=== PATIENT | female | born 1940 | race Caucasian/White ===

== ENCOUNTER 2018-09-20 06:41 | Inpatient (IN) ==
[~2018-09-20 06:41] MED LIST: ceFAZolin 1,000 MG in SYRINGE 1 EACH IV ONE
[2018-09-20] MEDS ORDERED: LACTATED RINGERS 1,000 ML IV SCH (08:30)
[2018-09-20] MEDS ORDERED: ceFAZolin 1,000 MG VIAL ONE (09:05)
[2018-09-20] MEDS ORDERED: DIAZEPAM 5 MG TABLET PO STA (09:07)
[2018-09-20] MEDS ORDERED: ALBUTEROL/IPRATROPIUM 3 ML NEB RESP TX STA (09:08)
[2018-09-20] MEDS ORDERED: DIAZEPAM 5 MG TABLET ONE (09:10)
[2018-09-20] MEDS ORDERED: BUPIVACAINE 0.5% 50 ML VIAL ONE (09:12)
[2018-09-20] MEDS ORDERED: LIDOCAINE 1%/EPI INJ 20 ML VIAL ONE (09:12)
[2018-09-20] MEDS ORDERED: TISSUE ADHESIVE 1 EACH APPLICATOR TOP ONE (09:12)
[2018-09-20] MEDS ORDERED: MORPHINE 4 MG/1 ML VIAL IV PRN ×2 (11:15)
[2018-09-20] MEDS ORDERED: ONDANSETRON 4 MG/2 ML VIAL IV PRN ×2 (11:15→11:47)
[2018-09-20] MEDS ORDERED: ALBUTEROL 0.63 MG/3 ML NEB RESP TX PRN (11:18)
[2018-09-20] MEDS ORDERED: Tapentadol Hcl [Nucynta] 50 MG PO PRN (11:18)
[2018-09-20] MEDS ORDERED: CYCLOBENZAPRINE 10 MG TABLET PO PRN (11:18)
[2018-09-20] MEDS ORDERED: MEPERIDINE 25 MG/1 ML VIAL IV PRN (11:20)
[2018-09-20] MEDS ORDERED: GLUCAGON 1 MG VIAL IM PRN (11:20)
[2018-09-20] MEDS ORDERED: DEXTROSE 50% 25 GM/50 ML VIAL IV PRN (11:20)
[2018-09-20] MEDS ORDERED: ONDANSETRON 4 MG/2 ML VIAL ONE ×2 (11:38→11:43)
[2018-09-20] MEDS ORDERED: HYDROmorphone 2 MG/1 ML VIAL ONE (11:38)
[2018-09-20] MEDS ORDERED: SEVOFLURANE 1 UNIT/15 MINUTE INH ONE (11:42)
[2018-09-20] MEDS ORDERED: PROPOFOL 200 MG/20 ML VIAL IV ONE (11:42)
[2018-09-20] MEDS ORDERED: NEOSTIGMINE 10 MG/10 ML VIAL ONE (11:43)
[2018-09-20] MEDS ORDERED: GLYCOPYRROLATE 0.4 MG/2 ML VIAL ONE (11:43)
[2018-09-20] MEDS ORDERED: fentaNYL 100 MCG/2 ML VIAL ONE (11:43)
[2018-09-20] MEDS ORDERED: MIDAZOLAM 2 MG/2 ML VIAL ONE (11:43)
[2018-09-20] MEDS ORDERED: KETOROLAC 30 MG/1 ML VIAL ONE (11:43)
[2018-09-20] MEDS ORDERED: ACETAMINOPHEN 1,000 MG/100 ML VIAL IV ONE (11:43)
[2018-09-20] MEDS ORDERED: ROCURONIUM 100 MG/10 ML VIAL IV ONE (11:43)
[2018-09-20] MEDS ORDERED: DEXAMETHASONE 4 MG/1 ML VIAL ONE (11:43)
[2018-09-20] MEDS: HYDROmorphone 2 MG/1 ML VIAL IV PRN ×4 (11:54→12:21)
[2018-09-20] MEDS: MULTIVITAMIN (CENTRUM) TABLET PO SCH (13:48)
[2018-09-20] MEDS: INSULIN LISPRO 100 UNIT/ML SUBCUT SCH ×2 (14:23→18:57)
[2018-09-20] MEDS: GABAPENTIN 300 MG CAPSULE PO SCH ×3 (14:23→21:29)
[2018-09-20] MEDS: ceFAZolin 2,000 MG in PREMIX 1 EACH IV SCH (18:58)
[2018-09-20] MEDS: MEPERIDINE 50 MG TABLET PO PRN (19:11)
[2018-09-20] MEDS: CALCIUM (CARBONATE)/VITAMIN D 600 MG-400 UNIT TABLET PO SCH (21:29)
[2018-09-20] MEDS: DONEPEZIL 10 MG TABLET PO SCH (21:29)
[2018-09-20] MEDS: CARBIDOPA/LEVODOPA 25-100 MG TABLET PO SCH ×2 (21:29)
[2018-09-20] MEDS: DOCUSATE SODIUM 100 MG CAPSULE PO SCH (21:30)
[2018-09-21] MEDS: ceFAZolin 2,000 MG in PREMIX 1 EACH IV SCH (00:30)
[2018-09-21 05:58] LABS: Basophils % 0.2 % (0.0-0.8); Eosinophils # 0.1 10*3/uL (0.0-0.87); Eosinophils % 0.8 % (0.00-10.9); Hematocrit 33.2 VOL% (35.7-47.0); Immature Granulocytes % 0.3 %; Immature Granulocytes Absolute 0.04 #; Lymphocytes # 2.2 10*3/uL (1.4-4.0); Mean Corpuscular HGB Conc 33.1 GM/DL (32-36); Mean Corpuscular Hemoglobin 31 PG (27-34); Mean Corpuscular Volume 92.5 FL (87-102); Mean Platelet Volume 10.4 FL (9.6-12.0); Monocytes # 0.8 10*3/uL (0.11-0.8); Monocytes % 6.7 % (1.7-12.7); Neutrophils # 8.9 10*3/uL (1.4-7.4); Platelet Count 240 T/CUMM (130-400); Red Blood Count 3.59 MC/CUMM (3.8-5.5); Red Cell Distribution Width 12.7 % (9.3-17.3)
[2018-09-21] MEDS: LEVOTHYROXINE 50 MCG TABLET PO SCH (06:11)
[2018-09-21 06:24] LABS: Alanine Aminotransferase < 9 U/L (13-56); Albumin 2.7 G/DL (3.4-5.0); Alkaline Phosphatase 77 U/L (45-117); Aspartate Amino Transferase 28 U/L (0-37); Bilirubin,Total < 0.39 MG/DL (0.2-1.0); Blood Urea Nitrogen 25 MG/DL (7-18); Calcium 9.2 MG/DL (8.5-10.1); Glucose 232 MG/DL (74-106); Osmolality,Calculated 283.8 MOS/KG (273-304); Sodium 137 MMOL/L (136-145); Total Protein 6.9 G/DL (6.4-8.3)
[2018-09-21] MEDS: IPRATROPIUM 500 MCG/2.5 ML NEB RESP TX SCH ×4 (08:12→19:39)
[2018-09-21] MEDS: DOCUSATE SODIUM 100 MG CAPSULE PO SCH ×2 (08:36→21:42)
[2018-09-21] MEDS: CALCIUM (CARBONATE)/VITAMIN D 600 MG-400 UNIT TABLET PO SCH ×2 (08:36→21:42)
[2018-09-21] MEDS: POLYETHYLENE GLYCOL POWDER 17 GM PACK PO SCH (08:36)
[2018-09-21] MEDS: MAGNESIUM HYDROXIDE SUSP 30 ML UDCUP PO SCH ×2 (08:37→08:43)
[2018-09-21] MEDS: MULTIVITAMIN (CENTRUM) TABLET PO SCH (08:37)
[2018-09-21] MEDS: GABAPENTIN 300 MG CAPSULE PO SCH ×4 (08:37→21:42)
[2018-09-21] MEDS: ASPIRIN EC 81 MG TABLET PO SCH (08:37)
[2018-09-21] MEDS: CARBIDOPA/LEVODOPA 25-100 MG TABLET PO SCH ×3 (08:37→22:12)
[2018-09-21] MEDS: BISACODYL 5 MG TABLET PO PRN (08:37)
[2018-09-21] MEDS: PANTOPRAZOLE 40 MG TABLET PO SCH (08:37)
[2018-09-21] MEDS: MEPERIDINE 50 MG TABLET PO PRN ×2 (09:09→14:29)
[2018-09-21] MEDS: INSULIN LISPRO 100 UNIT/ML SUBCUT SCH ×3 (09:35→17:56)
[2018-09-21] MEDS ORDERED: PROMETHAZINE 25 MG/1 ML VIAL IM PRN (15:17)
[2018-09-21] MEDS: METOCLOPRAMIDE 10 MG/10 ML UDCUP PO SCH ×2 (16:34→21:41)
[2018-09-21] MEDS: DONEPEZIL 10 MG TABLET PO SCH (21:42)
[2018-09-21] MEDS: ACETAMINOPHEN 325 MG TABLET PO PRN (22:12)
[2018-09-22] MEDS: ACETAMINOPHEN 325 MG TABLET PO PRN (04:06)
[2018-09-22 04:33] LABS: Basophils % 0.3 % (0.0-0.8); Eosinophils # 0.3 10*3/uL (0.0-0.87); Eosinophils % 2.4 % (0.00-10.9); Hematocrit 33.9 VOL% (35.7-47.0); Immature Granulocytes % 0.4 %; Immature Granulocytes Absolute 0.05 #; Lymphocytes # 3.4 10*3/uL (1.4-4.0); Lymphocytes % 29.4 % (21.3-54.2); Mean Corpuscular HGB Conc 32.4 GM/DL (32-36); Mean Corpuscular Hemoglobin 30 PG (27-34); Mean Corpuscular Volume 91.9 FL (87-102); Mean Platelet Volume 10.1 FL (9.6-12.0); Monocytes # 0.8 10*3/uL (0.11-0.8); Monocytes % 6.7 % (1.7-12.7); Neutrophils % 60.8 % (38.7-73.9); Platelet Count 246 T/CUMM (130-400); Red Blood Count 3.69 MC/CUMM (3.8-5.5); Red Cell Distribution Width 12.7 % (9.3-17.3); White Blood Count 11.6 T/CUMM (4-12)
[2018-09-22 05:30] LABS: Calcium 9.8 MG/DL (8.5-10.1); Osmolality,Calculated 278.8 MOS/KG (273-304); Potassium 4.3 MMOL/L (3.5-5.1)
[2018-09-22] MEDS: LEVOTHYROXINE 50 MCG TABLET PO SCH (06:02)
[2018-09-22] MEDS: IPRATROPIUM 500 MCG/2.5 ML NEB RESP TX SCH ×4 (07:26→19:40)
[2018-09-22] MEDS: INSULIN LISPRO 100 UNIT/ML SUBCUT SCH ×3 (07:52→17:37)
[2018-09-22] MEDS: MAGNESIUM HYDROXIDE SUSP 30 ML UDCUP PO SCH (08:38)
[2018-09-22] MEDS: BISACODYL 5 MG TABLET PO PRN (08:38)
[2018-09-22] MEDS: ASPIRIN EC 81 MG TABLET PO SCH (08:38)
[2018-09-22] MEDS: GABAPENTIN 300 MG CAPSULE PO SCH ×4 (08:39→21:15)
[2018-09-22] MEDS: MULTIVITAMIN (CENTRUM) TABLET PO SCH (08:39)
[2018-09-22] MEDS: METOCLOPRAMIDE 10 MG/10 ML UDCUP PO SCH ×4 (08:39→21:15)
[2018-09-22] MEDS: DOCUSATE SODIUM 100 MG CAPSULE PO SCH ×2 (08:39→21:15)
[2018-09-22] MEDS: POLYETHYLENE GLYCOL POWDER 17 GM PACK PO SCH (08:39)
[2018-09-22] MEDS: CALCIUM (CARBONATE)/VITAMIN D 600 MG-400 UNIT TABLET PO SCH ×2 (08:39→21:15)
[2018-09-22] MEDS: CARBIDOPA/LEVODOPA 25-100 MG TABLET PO SCH ×3 (08:39→22:42)
[2018-09-22] MEDS: PANTOPRAZOLE 40 MG TABLET PO SCH (08:39)
[2018-09-22] MEDS ORDERED: MAGNESIUM SULF RIDER 2 GM in PREMIX 1 EACH IV PRN (14:42)
[2018-09-22] MEDS ORDERED: MAGNESIUM SULF RIDER 4 GM in PREMIX 1 EACH IV PRN (14:42)
[2018-09-22] MEDS: ESTROGENS (CONJ) VAG CREAM 30 GM TUBE VAG SCH (14:57)
[2018-09-22] MEDS: DONEPEZIL 10 MG TABLET PO SCH (21:15)
[2018-09-23 05:33] LABS: Basophils # 0.1 10*3/uL (0.0-0.2); Basophils % 0.5 % (0.0-0.8); Eosinophils # 0.4 10*3/uL (0.0-0.87); Eosinophils % 3.7 % (0.00-10.9); Hematocrit 34.8 VOL% (35.7-47.0); Hemoglobin 11.6 GM/DL (12.0-16.0); Immature Granulocytes % 0.3 %; Immature Granulocytes Absolute 0.03 #; Lymphocytes # 2.3 10*3/uL (1.4-4.0); Lymphocytes % 23.6 % (21.3-54.2); Mean Corpuscular HGB Conc 33.3 GM/DL (32-36); Mean Corpuscular Hemoglobin 30 PG (27-34); Mean Corpuscular Volume 91.3 FL (87-102); Mean Platelet Volume 10.1 FL (9.6-12.0); Monocytes # 0.8 10*3/uL (0.11-0.8); Monocytes % 7.9 % (1.7-12.7); Neutrophils # 6.1 10*3/uL (1.4-7.4); Platelet Count 247 T/CUMM (130-400); Red Blood Count 3.81 MC/CUMM (3.8-5.5); Red Cell Distribution Width 12.7 % (9.3-17.3); White Blood Count 9.6 T/CUMM (4-12)
[2018-09-23 05:49] LABS: Calcium 9.7 MG/DL (8.5-10.1); Osmolality,Calculated 283.7 MOS/KG (273-304)
[2018-09-23 05:51] LABS: Alanine Aminotransferase < 6 U/L (13-56); Albumin 2.7 G/DL (3.4-5.0); Alkaline Phosphatase 77 U/L (45-117); Aspartate Amino Transferase 15 U/L (0-37); Blood Urea Nitrogen 17 MG/DL (7-18); Calcium 9.8 MG/DL (8.5-10.1); Glucose 231 MG/DL (74-106); Osmolality,Calculated 285.5 MOS/KG (273-304); Sodium 139 MMOL/L (136-145)
[2018-09-23] MEDS: LEVOTHYROXINE 50 MCG TABLET PO SCH (06:27)
[2018-09-23] MEDS: ACETAMINOPHEN 325 MG TABLET PO PRN ×3 (06:28→19:32)
[2018-09-23] MEDS: IPRATROPIUM 500 MCG/2.5 ML NEB RESP TX SCH ×4 (07:45→21:18)
[2018-09-23] MEDS: MULTIVITAMIN (CENTRUM) TABLET PO SCH (08:08)
[2018-09-23] MEDS: CALCIUM (CARBONATE)/VITAMIN D 600 MG-400 UNIT TABLET PO SCH ×2 (08:08→21:00)
[2018-09-23] MEDS: INSULIN LISPRO 100 UNIT/ML SUBCUT SCH ×3 (08:08→16:53)
[2018-09-23] MEDS: METOCLOPRAMIDE 10 MG/10 ML UDCUP PO SCH ×4 (08:08→21:00)
[2018-09-23] MEDS: ASPIRIN EC 81 MG TABLET PO SCH (08:08)
[2018-09-23] MEDS: PANTOPRAZOLE 40 MG TABLET PO SCH (08:08)
[2018-09-23] MEDS: CARBIDOPA/LEVODOPA 25-100 MG TABLET PO SCH ×3 (08:09→21:01)
[2018-09-23] MEDS: ONDANSETRON 4 MG TABLET PO PRN (08:09)
[2018-09-23] MEDS: GABAPENTIN 300 MG CAPSULE PO SCH ×4 (08:09→21:03)
[2018-09-23] MEDS: DOCUSATE SODIUM 100 MG CAPSULE PO SCH ×2 (08:09→21:00)
[2018-09-23] MEDS: POLYETHYLENE GLYCOL POWDER 17 GM PACK PO SCH (08:09)
[2018-09-23] MEDS: BISACODYL 5 MG TABLET PO PRN (08:09)
[2018-09-23] MEDS: MAGNESIUM HYDROXIDE SUSP 30 ML UDCUP PO SCH (08:09)
[2018-09-23] MEDS ORDERED: fentaNYL 25 MCG/HR PATCH TRANSDERM SCH (09:00)
[2018-09-23] MEDS: DONEPEZIL 10 MG TABLET PO SCH (20:59)
[2018-09-24 05:23] LABS: Basophils # 0.1 10*3/uL (0.0-0.2); Basophils % 0.6 % (0.0-0.8); Eosinophils # 0.5 10*3/uL (0.0-0.87); Eosinophils % 5.8 % (0.00-10.9); Hematocrit 35.1 VOL% (35.7-47.0); Hemoglobin 11.6 GM/DL (12.0-16.0); Immature Granulocytes % 0.5 %; Immature Granulocytes Absolute 0.04 #; Lymphocytes # 2.5 10*3/uL (1.4-4.0); Lymphocytes % 30.2 % (21.3-54.2); Mean Corpuscular Hemoglobin 30 PG (27-34); Mean Corpuscular Volume 91.2 FL (87-102); Mean Platelet Volume 10.1 FL (9.6-12.0); Monocytes # 0.6 10*3/uL (0.11-0.8); Monocytes % 7.4 % (1.7-12.7); Neutrophils # 4.7 10*3/uL (1.4-7.4); Neutrophils % 55.5 % (38.7-73.9); Platelet Count 254 T/CUMM (130-400); Red Blood Count 3.85 MC/CUMM (3.8-5.5); Red Cell Distribution Width 12.6 % (9.3-17.3); White Blood Count 8.4 T/CUMM (4-12)
[2018-09-24] MEDS: ONDANSETRON 4 MG TABLET PO PRN ×2 (05:38→09:28)
[2018-09-24] MEDS: ACETAMINOPHEN 325 MG TABLET PO PRN (05:38)
[2018-09-24 05:54] LABS: Calcium 10.5 MG/DL (8.5-10.1); Osmolality,Calculated 283.7 MOS/KG (273-304); Potassium 4.1 MMOL/L (3.5-5.1)
[2018-09-24] MEDS: LEVOTHYROXINE 50 MCG TABLET PO SCH (06:32)
[2018-09-24] MEDS: METOCLOPRAMIDE 10 MG/10 ML UDCUP PO SCH ×2 (06:32→12:17)
[2018-09-24] MEDS: IPRATROPIUM 500 MCG/2.5 ML NEB RESP TX SCH ×3 (07:25→15:35)
[2018-09-24] MEDS ORDERED: MAGNESIUM SULF RIDER 2 GM in PREMIX 1 EACH IV PRN (08:24)
[2018-09-24] MEDS ORDERED: MAGNESIUM SULF RIDER 4 GM in PREMIX 1 EACH IV PRN (08:24)
[2018-09-24] MEDS: INSULIN LISPRO 100 UNIT/ML SUBCUT SCH ×2 (09:28→13:28)
[2018-09-24] MEDS ORDERED: MAGNESIUM OXIDE 400 MG TABLET PO ONE (09:45)
[2018-09-24] MEDS: ASPIRIN EC 81 MG TABLET PO SCH (10:03)
[2018-09-24] MEDS: DOCUSATE SODIUM 100 MG CAPSULE PO SCH (10:04)
[2018-09-24] MEDS: MAGNESIUM HYDROXIDE SUSP 30 ML UDCUP PO SCH (10:04)
[2018-09-24] MEDS: MULTIVITAMIN (CENTRUM) TABLET PO SCH (10:04)
[2018-09-24] MEDS: CALCIUM (CARBONATE)/VITAMIN D 600 MG-400 UNIT TABLET PO SCH (10:04)
[2018-09-24] MEDS: POLYETHYLENE GLYCOL POWDER 17 GM PACK PO SCH (10:05)
[2018-09-24] MEDS: PANTOPRAZOLE 40 MG TABLET PO SCH (10:05)
[2018-09-24] MEDS: GABAPENTIN 300 MG CAPSULE PO SCH ×2 (10:05→13:28)
[2018-09-24] MEDS: CARBIDOPA/LEVODOPA 25-100 MG TABLET PO SCH (10:05)
[2018-09-24] MEDS: ESTROGENS (CONJ) VAG CREAM 30 GM TUBE VAG SCH (12:19)
[2018-09-24 13:13] VITALS: BP 128/61
== END 2018-09-24 16:25 | DRG 418 ==
LOC: N.SDSINP 06:41 → N.OR 06:41 → N.3E 12:33
PROVIDERS: ADMIT Surgery; ATTEND Surgery
PROC: LAPCHOL (2018-09-20 10:10)